=== PATIENT | male | born 1955 | race Caucasian/White ===

== ENCOUNTER → 2020-06-05 | Outpatient (CLI) | payer BC | LOC: SJCVCIMAG 15:59 → SJCVC 15:59 | PROVIDERS: ATTEND Internal Medicine Cardiovascular Disease | DX: I08.0 Rheumatic disorders of both mitral and aortic valves (principal); I48.0 Paroxysmal atrial fibrillation; I42.8 Other cardiomyopathies ==

== ENCOUNTER → 2020-06-10 | Outpatient (CLI) | payer BC, OTHER | LOC: SJCVCIMAG 06-09 11:36 | PROVIDERS: ATTEND Internal Medicine Cardiovascular Disease | DX: I48.91 Unspecified atrial fibrillation (principal); I10 Essential (primary) hypertension ==

== ENCOUNTER → 2020-10-31 | Outpatient (CLI) | payer BC, OTHER | LOC: MRI 09:21 | PROVIDERS: ATTEND Family Medicine | DX: G93.89 Other specified disorders of brain (principal); R41.3 Other amnesia ==

== ENCOUNTER 2021-05-26 09:42 | Emergency (ER) | payer BC ==
[~2021-05-26] VITALS: Ht 185.4 cm; Wt 90.7 kg
[2021-05-26 10:54] LABS: ABSOLUTE NEUTROPHILS 3.7 thou/uL (1.4-8.2); BASOPHILS 0.2 % (0.0-2.0); EOSINOPHILS 2.6 % (0.0-3.0); HEMATOCRIT 45.3 % (42.0-52.0); HEMOGLOBIN 15.3 gm/dL (14.0-18.0); LYMPHOCYTES 21.8 % (24.0-44.0); MCH 31.8 pg (26.0-34.0); MCHC 33.8 g/dL (28.0-37.0); MONOCYTES 12.9 % (1.0-8.0); PLATELET COUNT 187 thou/uL (150-400); POLYS 62.5 % (36.0-66.0); RBC 4.82 mil/uL (4.50-6.00); RDW 13.6 % (10.5-14.5); WBC 5.9 thou/uL (4.0-11.0)
[2021-05-26 10:58] LABS: ANION GAP 10 mmol/L (7-16); BUN 19 mg/dL (7-18); CALCIUM 9.1 mg/dL (8.5-10.1); CHLORIDE 107 mmol/L (98-107); CO2 26 mmol/L (21-32); CREATININE 0.9 mg/dL (0.7-1.3); GLUCOSE 94 mg/dL (74-106); POTASSIUM 4.4 mmol/L (3.5-5.1); SODIUM 143 mmol/L (136-145)
[2021-05-26 11:08] LABS: ALBUMIN 4.4 g/dL (3.4-5.0); LIPASE 124 U/L (73-393); SGOT 25 U/L (15-37); SGPT 33 U/L (16-63); TOTAL BILIRUBIN 0.6 mg/dL (0.2-1.0); TOTAL PROTEIN 7.5 g/dL (6.4-8.2); TROPONIN-I <0.06 ng/mL (<0.06)
--- NOTE | 2021-05-26 11:11 | EKG ---
[place] [address] [facility] [employer] [place] [address] ELECTROCARDIOGRAM REPORT Name: ANGIE CERNA Room #: REG AMANDA M.R.#: [id number] Admission: 05/26/21 Attend Phys: Discharge: Date of : 57 Report #: [id number] [facility] ED Test Date: 2021-05-26 Test Time: 10:26:35 Pat Name: ANGIE CERNA Department: Room: Gender: Box Cutter: : 1955 Requested By: Saul Chavarria Order Number: [id number] MD: Devin Reyes Measurements Intervals [place] Rate: 56 P: -11 RI: 190 QRS: 2 QRSD: 92 T: 25 QT: 431 QTc: 416 Interpretive Statements Sinus rhythm No previous ECG available for comparison Electronically Signed On 05-26-2021 11:10:54 CDT by Devin Reyes [email or web address] <ELECTRONICALLY SIGNED> By: Devin Reyes MD, [facility] 05/26/21 1110 1026 1026 Devin Reyes MD, FACC /EPI
[2021-05-26 11:35] VITALS: BP 133/91
== END 2021-05-26 11:35 | disposition home or self-care (01) ==
LOC: ER 09:42
PROVIDERS: Emergency Medicine
DX: R53.1 Weakness (principal); Z20.822 Contact with and (suspected) exposure to COVID-19; I48.91 Unspecified atrial fibrillation; Z98.890 Other specified postprocedural states

== ENCOUNTER → 2021-06-11 | Outpatient (CLI) | payer BC ==
[2021-06-11 10:02] LABS: CREATININE 1.1 mg/dL (0.7-1.3)
== END ==
LOC: MRI 08:50
PROVIDERS: ATTEND Family Medicine
DX: C25.2 Malignant neoplasm of tail of pancreas (principal); N28.1 Cyst of kidney, acquired

== ENCOUNTER → 2021-09-01 | Outpatient (CLI) | payer BC, OTHER | LOC: SJCVCIMAG 09:05 | PROVIDERS: ATTEND Internal Medicine Cardiovascular Disease | DX: I08.0 Rheumatic disorders of both mitral and aortic valves (principal); I48.0 Paroxysmal atrial fibrillation; I10 Essential (primary) hypertension; I47.1 Supraventricular tachycardia; R93.1 Abnormal findings on diagnostic imaging of heart and coronary circulation; D68.59 Other primary thrombophilia; R07.89 Other chest pain; R06.00 Dyspnea, unspecified; B19.20 Unspecified viral hepatitis C without hepatic coma; E78.5 Hyperlipidemia, unspecified; I25.10 Atherosclerotic heart disease of native coronary artery without angina pectoris; Z98.890 Other specified postprocedural states; Z79.02 Long term (current) use of antithrombotics/antiplatelets; Z79.82 Long term (current) use of aspirin; Z79.899 Other long term (current) drug therapy; Z72.89 Other problems related to lifestyle; Z86.16 Personal history of COVID-19 ==

== ENCOUNTER → 2021-10-06 | Outpatient (CLI) | payer BC, OTHER | LOC: SJCVCIMAG 07:06 | PROVIDERS: ATTEND Internal Medicine Cardiovascular Disease | DX: I08.0 Rheumatic disorders of both mitral and aortic valves (principal); I10 Essential (primary) hypertension; E78.5 Hyperlipidemia, unspecified; I48.91 Unspecified atrial fibrillation ==